=== PATIENT | male | born 2000 | race Caucasian/White ===

== ENCOUNTER 2024-12-28 22:06 | Inpatient (IN) | payer MEDICARE, SELFPAY ==
[2024-12-28 17:28] VITALS: BP 100/72
[2024-12-28 17:38] VITALS: BMI 20.2
[2024-12-28 18:07] LABS: ALT (SGPT) 43 U/L (0-50); AST (SGOT) 34 U/L (17-59); Albumin 4.8 g/dl (3.5-5.0); Alkaline Phosphatase 28 U/L (38-126); Blood Urea Nitrogen 15 mg/dl (9-20); Calcium 9.7 mg/dl (8.4-10.2); Carbon Dioxide 21 mmol/L (22-30); Chloride 94 mmol/L (98-107); Estimated Creatinine Clearance 116 ml/min; Glucose 111 mg/dl (70-99); Potassium 4.5 mmol/L (3.5-5.1); Sodium 122 mmol/L (135-145); Total Protein 7.5 g/dl (6.3-8.2); eGFR > 60.00
[2024-12-28 18:38] LABS: Hematocrit 43.6 % (39.0-52.0); Hemoglobin 16.3 g/dL (13.0-18.0); Mean Corp Hgb Conc. 37.4 g/dL (33.0-37.0); Mean Corpuscular Volume 80.9 fL (80.0-94.0); Platelet Count 522 10^3/uL (130-400); Red Cell Dist. Width 12.2 % (11.5-14.5)
[2024-12-28 18:40] LABS: Absolute Neutrophils -Man Diff 6.9 10^3/uL (1.4-6.5); Smudge Cells 2+; Total Cells Counted 100
[2024-12-28 18:41] LABS: Normal RBC Morphology No; Platelets Checked Yes
[2024-12-28 18:45] LABS: Microcytosis 2+; Poikilocytosis 2+; Schistocytes 1+; Tear Drop Red Blood Cells 1+
[2024-12-28 19:00] VITALS: BP 97/73
[2024-12-28 19:07] LABS: Magnesium 2.0 mg/dl (1.6-2.3)
[2024-12-28] MEDS: SOLU-CORTEF 100 MG IV (19:09)
[2024-12-28 19:14] LABS: Urine Character Clear (Clear)
--- NOTE | 2024-12-28 19:14 | ED.GENMED ---
History of Present Illness
General
Chief Complaint: Abnormal Lab Value
Source: patient
Exam Limitations: none
Time Seen by Provider: 12/28/24 17:31
Nursing documentation reviewed up to this point in time: agreed with
History of Present Illness
History of Present Illness:
Patient with history of congenital adrenal hyperplasia, presents to ED at the recommendation of his packing machine can feeder after outpatient blood work revealed low sodium level. Per mother, patient has had poor appetite recently, with approximately 7
pound weight loss over the past 3 weeks, along with intermittent episode of vomiting. Denies diarrhea. Denies fever or chills. Denies coughing. Denies recent change in medications or diet. Patient takes hydrocortisone and Florinef as
maintenance. Patient was admitted to another hospital 1 month ago secondary to hyponatremia.
Review of Systems
Review of Systems
Allergies reviewed?: Yes
All Other Systems: ROS reviewed and negative except as documented in HPI and ROS
Constitutional: Reports no symptoms; Denies fever
Respiratory: Reports no symptoms; Denies trouble breathing
Cardiac: Reports no symptoms; Denies palpitations
ABD/GI: Reports nausea and vomiting
Musculoskeletal: Reports no symptoms
Skin: Reports no symptoms
Neurological: Reports no symptoms; Denies dizzy, weakness or numbness
Phy Exam
Physical Exam
Physical Exam:
Physical Exam
General: no apparent distress, not acutely ill. afebrile
Head: nc/at. eomi
Neck: supple. no meningeal signs.
Heart: s1/s2 regular rate and rhythm
Lungs: no acute respiratory distress. clear bilaterally
Abdomen: normal bowel sounds. not tender.
Neuro: alert and oriented x 3. no focal neurological deficits
Skin: no rash
Psychiatric: well kept. interactive and cooperative
Extremities: no edema. no calf tenderness.
Course
Orders/Labs/Results
Orders:
Orders
12/28/24 Breakfast
Regular
At Your Request: Full Participation
Fluid Restriction: 1200 mL/day (40 oz)
12/28/24 17:31
Electrocardiogram (*1) Urgent
Reason for Study: Fatigue / Weakness
EKG- Treatment ONCE
12/28/24 17:49
B-Hydroxybutyrate Urgent
CMP [Comprehensive Metabolic Panel] Urgent
Complete Blood Count/With Diff Urgent
Cortisol, Random Urgent
Comment: ADD ON
Magnesium Urgent
Comment: ADD OB
Manual Differential Urgent
Serum Osmolality Urgent
Comment: ADD ON
TSH Urgent
Comment: ADD ON
12/28/24 18:33
Add On- LAB Urgent
Tests Added?: serum osm, magnesium, TSH
12/28/24 18:59
Osmolality, Random Urine Urgent
Date Specimen was Collected: 12/28/24
Time Specimen was Collected: 18:43
Urinalysis Reflex To Culture Urgent
Date Specimen was Collected: 12/28/24
Time Specimen was Collected: 18:43
Urine Microscopic Reflex Cult Urgent
Urine Sodium Urgent
Date Specimen was Collected: 12/28/24
Time Specimen was Collected: 18:43
12/28/24 19:04
Hydrocortisone Sod Succinate [Solu-Cortef] 100 mg IV NOW STA
12/28/24 19:28
Add On- LAB Urgent
Tests Added?: random cortisol
12/28/24 20:55
Admit/Transfer Patient As Directed
Co-Sign Provider:
Level of Care: Inpatient admission
Assign to:: Telemetry
Physician / Group: [place]
Diagnosis: Hyponatremia, Adrenal Insufficiency
Reason for Telemetry: Arrhythmia
Date to Stop Telemetry: 12/31/24
Time to Stop Telemetry: 11:00
Reason for Hospitalization: Hyponatremia, Adrenal Insufficiency
Expected length of stay greater than two midnights?: Yes
ELOS- Estimated Length of Stay in days: 3
I certify the patient meets the requirements for IP care: Yes
PRN Pain Medication Management As Directed
May give lesser potent ordered pain med per pt: Yes
preference::
Protocol:: Medication orders for pain may be administered in a
manner that supports deferring to patient preference
when the pt is:
- Requesting an ordered lesser potent pain medication.
Least to most potent pain medications are defined
as: acetaminophen < NSAID < tramadol < opioids
(morphine, oxycodone, hydromorphone).
- Requesting a lesser dose of the same medication IF
ORDERED.
- Requesting a less intrusive route of administration
if both routes are prescribed by the provider (PO <
IV).
12/28/24 20:56
Code Status As Directed
Resuscitation Status: Full Code
12/28/24 22:08
Acetaminophen [Tylenol] 650 mg PO Q4HPRN PRN
Famotidine [Pepcid] 40 mg PO HS
Prochlorperazine [Compazine] 5 mg IV Q6HPRN PRN
12/28/24 22:08
Activity As Directed
Activity Level: Ambulate
With Assistance
EKG with chest pain [ECG as needed] As Directed
ECG as needed for:: Chest Pain
I/O [Intake/ Output] As Directed
Frequency: Per unit guidelines
Pneumatic Compression Sleeves As Directed
Type: Knee high
Vital Signs As Directed
Frequency: Per unit guidelines
Weight As Directed
Frequency: Daily
DX Deep Vein Thrombosis Video Routine
12/29/24 01:00
Hydrocortisone Sod Succinate [Solu-Cortef] 50 mg IV Q6
12/29/24 06:27
Basic Metabolic Panel IN AM
Complete Blood Count/No Diff IN AM
12/29/24 08:00
Fludrocortisone Acetate [Florinef] 0.1 mg PO SUTUTHSA
12/30/24 08:00
Fludrocortisone Acetate [Florinef] 0.15 mg PO MoWeFr@0800
12/31/24 11:00
DC Protocol for Telemetry ONCE
Abnormal Lab Results
12/28/24 12/28/24
17:49 18:59
MCHC 37.4 H g/dL
(33.0-37.0)
Plt Count 522 H 10^3/uL
(130-400)
Abs Neuts (Manual) 6.9 H 10^3/uL
(1.4-6.5)
Segmented Neutrophils 41 L %
(42-75)
Sodium 122 L mmol/L
(135-145)
Chloride 94 L mmol/L
(98-107)
Carbon Dioxide 21 L mmol/L
(22-30)
Glucose 111 H mg/dl
(70-99)
Serum Osmolality 260 L mOsm/kg
(275-300)
Alkaline Phosphatase 28 L U/L
(38-126)
Urine Ketones 3+ A
(Negative)
Urine Bacteria (Reflex) Few A
(Negative)
Urine Sodium 191 H mmol/L
(30-90)
Urine Albumin (Reflex) 1+ A
(Neg - Trace)
B-Hydroxybutyrate 0.28 H mmol/L
(0.02-0.27)
12/28/24 17:49
12/28/24 17:49
Vital Signs
Initial and Last Documented VS:
Initial Vital Signs
Temp Pulse Resp BP Pulse Ox
98.1 F 102 18 100/72 100
12/28/24 17:28 12/28/24 17:28 12/28/24 17:28 12/28/24 17:28 12/28/24 17:28
Last Documented Vital Signs
Temp Pulse Resp BP Pulse Ox
97.9 F 94 18 103/68 100
12/29/24 11:42 12/29/24 11:42 12/29/24 11:42 12/29/24 11:42 12/29/24 11:42
MDM/Problems Addressed
MDM/Problems Addressed:
Discussed with on-call packing machine can feeder at [facility], covering for primary packing machine can feeder, . Recommends administering hydrocortisone 50 mg every 6 hours along with nephrology consultation for recurrent
hyponatremia.
*Pulse Oximetry
SaO2: 100
Oxygen Mode of Delivery: Room air
Patient hypoxic: no
*Critical Care Note
Total Time (30-74mins, 75-104mins- exclusive of procedures): Not Applicable
ED Attending Note
-
Portions of this chart may have been created with voice recognition software.� Occasional wrong word or��sound alike� substitutions may have occurred due to the inherent limitations of voice recognition software.
Discharge Plan
Departure
Patient Disposition: Admit
Date of Disposition: 12/28/24
Time of Disposition: 19:49
Admit to: Telemetry
Presentation/result/management discussed w/ accepting MD/DO: Hospitalist
Discharge Problem:
Hyponatremia
Interventions
Interventions:
*Risk Screen - Suicide Last Done: 12/28/24 22:30
*General Assessment Last Done: 12/28/24 17:31
*Neglect/Abuse Screening Last Done: 12/28/24 17:31
*ED- Fall Risk Assessment Last Done: 12/28/24 17:32
*ED COVID-19 Vaccine History Last Done: 12/28/24 22:30
*Nursing Disposition Last Done: 12/28/24 22:07
Discharge Date and Time
Discharge Date/Time: 12/28/24 22:16
[2024-12-28 19:33] LABS: Urine Squamous Cell 0-2 /LPF (Few)
[2024-12-28 19:34] LABS: Urine Red Blood Cell 0-2 /HPF (0-2); Urine White Cell 0-2 /HPF (0-5)
[2024-12-28 19:52] LABS: TSH 1.85 uIU/ml (0.47-4.68)
[2024-12-28 20:35] LABS: Cortisol, Random 4.4 ug/dl
--- NOTE | 2024-12-28 20:59 | HPS.HSE ---
Family Physician
-
Family Physician: NOT KNOW UNKNOWN - PT DOES
Chief Complaint
-
Abnormal Labs
History of Present Illness
Patient is a 24y M with PMH significant for congenital adrenal hyperplasia / adrenal insufficiency who presents to ED for evaluation of abnormal labs. Patient had outpatient labs done and was notified by his Evaporator Helper that his Na level was
low at 122. He was advised to present to the ED for admission / IV hydrocortisone. Patient was hospitalized one month ago at [facility] for hyponatremia / adrenal crisis. Mother notes that his presentation at that time was preceded by
agitation / anger / emotional distress. He also has been noted to have early AM emesis of clear fluid that has been fairly consistent over the past few weeks. He has occasional N/V during the day / following meals - but this is less frequent.
Patient tells me that he has some burning discomfort in the epigastric area early in the AM. No diarrhea, bloody stools, etc.
He has had decreased appetite and has lost about 7 pounds in the past 20 days.
No recent emotional stress / anger issues / etc per mother.
Mother notes that he had never had a crisis episode prior to last month.
Medical History
Past Medical History
Past Medical History: Reports Other
Additional Past Medical History:
Congenital Adrenal Hyperplasia
Adrenal Insufficiency
Past Surgical History: Reports Other
Additional Past Surgical History:
Orchiectomy (undescended testicle)
Social History
Tobacco: Non-smoker
Alcohol: None
Drug: None
Family History
Family History: Not pertinent
Allergies / Home Medications
Allergies reflects when Allergies were last updated in [employer].
Home Medications with original date entered in [employer]
Allergy/Medication List:
Allergies
Allergy/AdvReac Type Severity Reaction Status Date / Time
No Known Allergies Allergy Verified 12/28/24 17:33
Home Medications
Lyef Balance 1 cap PO DAILY 12/28/24
fludrocortisone 0.1 mg tablet 0.1 mg PO HS 12/28/24
hydrocortisone 5 mg tablet 10 mg PO HS 12/28/24
hydrocortisone 5 mg tablet 20 mg PO DAILY 12/28/24
magnesium oxide 400 mg PO DAILY 12/28/24
Review of Systems
-
History Source: Patient
A 12 point ROS was completed and negative except as noted: Yes
Constitutional: Reports Weight Loss and Fatigue; Denies Fever or Chills
Respiratory: Denies Cough or Trouble Breathing
Cardiac: Denies Chest Pain or Palpitations
Abdomen/GI: Reports Nausea, Vomiting and Anorexia; Denies Abdominal Pain, Diarrhea, Constipated, Bloody Stools or Black Stools
: Denies Dysuria, Frequency or Flank Pain
Musculoskeletal: Denies Joint Pain or Edema
Neurological: Denies Dizzy or Headache
Psych: Denies Depression or Anxiety
Physical Exam
Vital Signs
Vital Signs
Temp Pulse Resp BP Pulse Ox
98.1 F 95 18 97/73 100
12/28/24 17:28 12/28/24 20:45 12/28/24 20:45 12/28/24 19:00 12/28/24 20:15
Physical Exam
General: Other (24y M in no acute distress. )
HEENT: Moist mucous membranes and PERRLA
Respiratory: Clear; No Wheezes, Rales or Rhonchi
Cardiac: S1/S2 and Regular Rhythm; No Murmur
GI: Soft, Non Tender, Non Distended and Normal Bowel Sounds
Musculoskeletal: No Clubbing, No Cyanosis and No Edema
Neuro: AO x 3
Laboratory Results
-
12/28/24 17:49
12/28/24 17:49
Laboratory Results
Total Bilirubin 0.6 mg/dl (0.2-1.3) 12/28/24 17:49
AST 34 U/L (17-59) 12/28/24 17:49
ALT 43 U/L (0-50) 12/28/24 17:49
Alkaline Phosphatase 28 U/L (38-126) L 12/28/24 17:49
Impression/Plan
-
A/P: Patient is a 24y M with PMH significant for congenital adrenal hyperplasia / adrenal insufficiency who presents to ED for evaluation of hyponatremia.
Congenital Adrenal Hyperplasia
Adrenal Insufficiency
Acute Hyponatremia / Adrenal Crisis
- Admit to monitored bed for further evaluation and treatment.
- Hydrocortisone 100mg given in the ED.
- Continue with hydrocortisone 50mg IV q 6 until Na levels are improved.
- Fluid restriction.
- Nephrology evaluation for additional recommendations.
- Continue usual dose of Florinef.
- Follow BP / pulse / etc.
- Monitor for any new / worsening symptoms.
N/V
- Patient with persistent AM nausea and emesis.
- ? gastritis / reflux disease with mostly AM symptoms, described burning sensation and chronic steroid use.
- Trial of H2 blockade at HS.
- Consider GI evaluation for additional evaluation / recommendations.
DVT Prophylaxis: SCDs
Code Status: Full
[2024-12-28 21:03] VITALS: BP 92/58
[2024-12-28 22:23] VITALS: BP 108/67; BMI 19.3
[2024-12-28] MEDS: PEPCID 40 MG PO (23:14)
[2024-12-29] VITALS (7 sets, daily range): BP systolic 100–115; BP diastolic 63–74; BMI 19.1
[2024-12-29] MEDS: SOLU-CORTEF 50 MG IV ×5 (01:13→23:45)
--- NOTE | 2024-12-29 03:55 | PTCARENOTE ---
received pt from ED at 2230. pt ambulated from stretcher to bed. pts mother at bedside. pt A&O x 3. pt offers no current complaints and appears comfortable in bed. plan of care ongoing.
--- NOTE | 2024-12-29 07:05 | PTCARENOTE ---
pt HR tachy throughout the night 80s-120s. Vital signs otherwise stable, pt asymptomatic. ambulated pt to bathroom at 0615 and HR went up to 150-160s. once pt brought back to bed HR back down to low 100s. Pt denies chest pain or palpitations. CLINICAL INFORMATION SYSTEMS DIRECTOR
made aware, no new orders at this time. plan on care ongoing.
--- NOTE | 2024-12-29 07:26 | W.PN.HOSP.TC ---
Addendum entered and electronically signed by Hilton Merida MD 12/29/24 21:26:
Attending Addendum-
I saw and evaluated the patient. I reviewed the resident�s note and agree with findings and plan as documented in the resident�s note. Sub: patient seen with mother present. states he feels much better. has no complaints Mother is providing majority
of history. Denies pain CP palps urinary sxs. Full 12 point ROS reviewed and negative except as documented Exam: Vitals reviewed in chart GEN-NAD heart tachycardic lungs clear abd soft LE no edema Neuro AAO x 3
Plan:
#Congenital Adrenal Hyperplasia
#Adrenal Insufficiency/Adrenal Crisis
- Continue with hydrocortisone 50mg IV q 6
- DC fluid restriction
- endo consult
- Continue Florinef
- r/o infection
# Severe Hyponatremia
- hypovolemic
- due to adrenal insufficiency
- cont hydrocortisone/florinef
- avoid increase > 8-10meq n 24 hours
- DC fluid restriction, start IVF
- c/s nephro-placed overnight
- monitor closely
# Hyperkalemia
- from adrenal insufficiency
- cont hydrocortisone/florinef
- repeat BMP, check EKG-no peaked t waves
# N/V
- start H2 blockade at HS
# Metabolic Acidosis
- likely from dehydration/ketosis
- start IVF
DVT Prophylaxis: SCDs
Code Status: Full
Time spent coordinating care, review of plan of care with resident, personally reviewed records in EMR, med rec, consults, notes, labs, radiology, d/w nursing, and mother � 53 mins
Original Note:
Today's Communication/Plan
-
Continue to monitor BMP
Continue IV steroids, Famotidine, prochlorperazine as needed for nausea
Start IV fluids
No fluid restriction
Assessment / Plan
Assessment / Plan
Assessment:
This is a 24 y/o male with pmhx of congenital adrenal hyperplasia/adrenal insufficiency who presented to the ED by the request of his tattoo artist. He was notified by his tattoo artist via phone that his recent outpatient labs showed a sodium
of 122.
Plan:
Congenital Adrenal Hyperplasia
Adrenal Insufficiency
Acute Hyponatremia/Acute Hyperkalemia/Adrenal crisis
-Sodium on admission 122, 124 today. On repeat BMP, sodium was 123.
-Potassium on admission 4.5, 6.0 today. On repeat BMP, potassium was 5.3
-S/p 100mg hydrocortisone in the ED
-Continue hydrocortisone 50mg IV Q6hr until sodium level improves
-Continue home dosing of fludrocortisone (0.1mg Thursday/Thursday//Thursday; 0.15mg Thursday/Thursday/Thursday)
-Continue to monitor BMP. In light of increase in potassium, ordered repeat BMP as well as magnesium, phosphorous and EKG this AM. EKG showed no acute changes compared to EKG prior to onset of palpitations.
-If Potassium increases again, will order Insulin 10 units + Dextrose and repeat BMP serially following treatment and possibly calcium gluconate if abnormalities are noted on telemetry
-Continue to follow vital signs, continue on telemetry
-Removed fluid restriction from diet
-Started Normal Saline IVF
Nausea/Vomiting
-Patient with persistent teaching dietitian nausea and vomiting
-DD includes GERD, pill esophagitis
-Continue famotidine 40mg HS
-Continue prochlorperazine 5mg IV [id number] for nausea/vomiting
Anticipated Discharge: 24 - 48 hours
Subjective/Interval History
-
Date of Service: December 29, 2024
Patient was sitting in bed when I arrived. He states that he has been admitted to [facility] twice recently prior to this current admission. He has no current complaints, but states last night his heart felt like it was racing. This happened
while he was sitting in bed, and resolved on its own. It has not occurred before or since. He states that his mother will be coming to the hospital around 9:00AM, and will be able to answer questions about his medical history then.
By nursing staff report, last night patient had an episode of heart palpitations accompanied by heart rate in the 160s. This morning, while going to the bathroom, his heart rate was 130.
Objective Data
-
Labs:
Laboratory Results
12/29/24
06:27
WBC Pending
Hgb Pending
Hct Pending
Plt Count Pending
Sodium Pending
Potassium Pending
Chloride Pending
Carbon Dioxide Pending
BUN Pending
Creatinine Pending
Glucose Pending
Calcium Pending
Vital Signs:
Vital Signs
Temp Pulse Resp BP Pulse Ox
97.6 F 93 20 100/68 100
12/29/24 03:57 12/29/24 03:57 12/29/24 03:57 12/29/24 03:57 12/29/24 03:57
I&O
12/28/24 12/29/24 12/30/24
06:59 06:59 06:59
Intake Total 480 / 480
Balance 480 / 480
Review of Systems
-
History Source: Patient
Respiratory: Denies Trouble Breathing
Cardiac: Reports Palpitations (See HPI, none currently); Denies Chest Pain
Abdomen/GI: Denies Abdominal Pain or Nausea
Musculoskeletal: Denies Joint Pain
Neuro: Denies Dizzy or Headache
Physical Exam
-
General: No Apparent Distress and Comfortable
Respiratory: Clear to Auscultation
Cardiac: Regular Rhythm, S1/S2 and Tachycardic
Skin: Warm and Dry
Neuro: Awake and Alert
Psych: Calm
[2024-12-29 07:35] LABS: Hematocrit 45.6 % (39.0-52.0); Hemoglobin 16.8 g/dL (13.0-18.0); Mean Corp Hgb Conc. 36.8 g/dL (33.0-37.0); Mean Corpuscular Volume 83.1 fL (80.0-94.0); Platelet Count 610 10^3/uL (130-400); Red Cell Dist. Width 12.0 % (11.5-14.5)
[2024-12-29 08:00] LABS: Blood Urea Nitrogen 19 mg/dl (9-20); Calcium 9.8 mg/dl (8.4-10.2); Carbon Dioxide 16 mmol/L (22-30); Chloride 97 mmol/L (98-107); Estimated Creatinine Clearance 110 ml/min; Glucose 130 mg/dl (70-99); Potassium 6.0 mmol/L (3.5-5.1); Sodium 124 mmol/L (135-145); eGFR > 60.00
[2024-12-29] MEDS: FLORINEF 0.1 MG PO (08:15)
[2024-12-29 09:31] LABS: Blood Urea Nitrogen 19 mg/dl (9-20); Calcium 10.0 mg/dl (8.4-10.2); Carbon Dioxide 17 mmol/L (22-30); Chloride 96 mmol/L (98-107); Estimated Creatinine Clearance 110 ml/min; Glucose 248 mg/dl (70-99); Potassium 5.3 mmol/L (3.5-5.1); Sodium 123 mmol/L (135-145); eGFR > 60.00
[2024-12-29 09:55] LABS: Magnesium 2.1 mg/dl (1.6-2.3)
[2024-12-29] MEDS: NSS 1000 IV (11:45)
--- NOTE | 2024-12-29 12:07 | W.CON.NEPH ---
Consultation
-
Date/Time Consultation Requested: December 28, 2024 at 2000
Date/Time Consultation Performed: December 29, 2024 9 AM
Requesting Provider: Mike Mathew
Performing Provider: Dr. Culp
Reason for Consultation: Hyponatremia
Medical History
-
Chief Complaint: Hyponatremia
History of Present Illness:
24y M with PMH significant for congenital adrenal hyperplasia / adrenal insufficiency who presents to ED for evaluation of abnormal labs. Patient had outpatient labs done and was notified by his Gospel Singer that his Na level was low at 122.
He was advised to present to the ED for admission / IV hydrocortisone. Patient was hospitalized one month ago at [facility] for hyponatremia / adrenal crisis. Mother notes that his presentation at that time was preceded by agitation / anger /
emotional distress.
Mild vomiting yesterday
Mother notes that he had never had a crisis episode prior to last month.
Renal consult for hyponatremia and hyperkalemia
Past Medical History
Congenital adrenal hyperplasia / adrenal insufficiency
Social History
Tobacco: Non-Smoker
Alcohol: None
Allergies / Home Medications
Allergy/AdvReac Type Severity Reaction Status Date / Time
No Known Allergies Allergy Verified 12/28/24 17:33
�Medication �Instructions �Recorded �Confirmed �Type
Lyef Balance 1 cap PO DAILY Supplement 12/28/24 12/28/24 History
fludrocortisone 0.1 mg tablet 0.1 mg PO HS Hormonal Agent 12/28/24 12/28/24 History
hydrocortisone 5 mg tablet 10 mg PO HS Hormonal Agent 12/28/24 12/28/24 History
hydrocortisone 5 mg tablet 20 mg PO DAILY Hormonal Agent 12/28/24 12/28/24 History
magnesium oxide 400 mg PO DAILY Supplement 12/28/24 12/28/24 History
Review of Systems
-
No chest pain or shortness of breath normal appetite no urinary incontinence
All other systems: Negative unless noted
Physical Exam
Vital Signs
Vital Signs
Temp Pulse Resp BP Pulse Ox
97.9 F 94 18 103/68 100
12/29/24 11:42 12/29/24 11:42 12/29/24 11:42 12/29/24 11:42 12/29/24 11:42
Lab Results
WBC 6.7 10^3/uL (4.8-10.8) 12/29/24 06:27
RBC 5.49 10^6/uL (4.70-6.10) 12/29/24 06:27
Hgb 16.8 g/dL (13.0-18.0) 12/29/24 06:27
Hct 45.6 % (39.0-52.0) 12/29/24 06:27
Plt Count 610 10^3/uL (130-400) H 12/29/24 06:27
Sodium 123 mmol/L (135-145) L 12/29/24 08:40
Potassium 5.3 mmol/L (3.5-5.1) H 12/29/24 08:40
Chloride 96 mmol/L (98-107) L 12/29/24 08:40
Carbon Dioxide 17 mmol/L (22-30) L 12/29/24 08:40
BUN 19 mg/dl (9-20) 12/29/24 08:40
Creatinine 0.8 mg/dL (0.7-1.3) 12/29/24 08:40
eGFR > 60.00 12/29/24 08:40
Glucose 248 mg/dl (70-99) H 12/29/24 08:40
Calcium 10.0 mg/dl (8.4-10.2) 12/29/24 08:40
Phosphorus 5.3 mg/dl (2.5-4.5) H 12/29/24 08:40
Albumin 4.8 g/dl (3.5-5.0) 12/28/24 17:49
Physical Exam
General no acute distress
HEENT no cephalic atraumatic extraocular muscle intact no scleral icterus no JVD neck supple
lungs clear to auscultation bilateral
heart regular S1-S2 positive
abdomen soft nontender positive bowel sounds
extremities no edema pulses present bilateral
Neurologically nonfocal alert and oriented x 3
Skin no lesions no abrasions no petechiae
Psych normal affect no bizarre behavior
Data Reviewed
-
Labs: Labs Reviewed by me, Discussed with Patient and Discussed with Family
Assessment/Plan
-
24y M with PMH significant for congenital adrenal hyperplasia / adrenal insufficiency who presents to ED for evaluation of abnormal labs. Patient had outpatient labs done and was notified by his Gospel Singer that his Na level was low at 122.
He was advised to present to the ED for admission / IV hydrocortisone. Patient was hospitalized one month ago at [facility] for hyponatremia / adrenal crisis. Mother notes that his presentation at that time was preceded by agitation / anger /
emotional distress. He also has been noted to have early AM emesis of clear fluid that has been fairly consistent over the past few weeks. He has occasional N/V during the day / following meals - but this is less frequent.
Patient tells me that he has some burning discomfort in the epigastric area early in the AM. No diarrhea, bloody stools, etc.
He has had decreased appetite and has lost about 7 pounds in the past 20 days.
No recent emotional stress / anger issues / etc per mother.
Mother notes that he had never had a crisis episode prior to last month.
Impression
Hyponatremia 124
Hyperkalemia
Adrenal insufficiency/congenital adrenal hyperplasia
Cognitive disability
Plan.
IV hydrocortisone.
Continue Florinef.
Increase Florinef to 0.2 mg daily. Outpatient currently taking 0.1 mg 4 times a week and 0.15 mL Thursday.
Will give hypertonic saline for 6-hour
Follows with endocrinology [facility] has not done so in the last 2 to 3 years
[2024-12-29] MEDS: SODIUM CHLORIDE 3% 250 IV (12:52)
--- NOTE | 2024-12-29 13:00 | CM ---
Chart reviewed. Met with pt and mother. IA completed. lives in the basement of a 3 story home which he shares with mother. Pt has access to all levels of the home. BR is on the 1st floor. Pt in independent in ADLs. No hx of home O2, HH. DME or SNF.
No insecurities identified. Mother states uses his development and housing director as his PCP: Dr. Mckenzie. Confirmed RX, insurance and drug coverage.
Plan: Home with mother, no needs
[2024-12-29] MEDS: PEPCID 40 MG PO (20:17)
[2024-12-30 03:23] VITALS: BP 104/69
[2024-12-30] MEDS: SOLU-CORTEF 50 MG IV ×2 (05:35→12:04)
[2024-12-30 06:00] VITALS: BMI 19.8
[2024-12-30 07:00] VITALS: BP 117/72
--- NOTE | 2024-12-30 07:15 | W.PN.HOSP.TC ---
Addendum entered and electronically signed by Hilton Merida MD 12/30/24 22:01:
Attending Addendum-
I saw and evaluated the patient. I reviewed the resident�s note and agree with findings and plan as documented in the resident�s note. Sub: called by nursing re mother wanting to be DC'd stat or leave AMA. d/w mother at great length re developing a
solid plan prior to DC as patient is still on IV steroids. patient seen with mother present. states he feels much better and wants to go home. Mother is providing all of history. Denies pain CP palps urinary sxs. Full 12 point ROS reviewed and
negative except as documented Exam: Vitals reviewed in chart GEN-NAD heart RRR lungs clear abd soft LE no edema Neuro AAO x 3 , developmental delay
Plan:
#Congenital Adrenal Hyperplasia
#Adrenal Insufficiency/Adrenal Crisis
- transition to stress dose steroids PO on DC
- DC fluid restriction
- d/w endo at [facility]
- Continue increased Florinef
- no clear cause for patients sxs or stressor noted
- to avoid ama will DC with close follow up plan and agreement with mother to follow plan
# Severe Hyponatremia
- hypovolemic
-imporved after 3% saline
- cont increased florinef- dc home with close follow up
# Hyperkalemia
- from adrenal insufficiency
- cont hydrocortisone/florinef
- repeat BMP, check EKG-no peaked t waves
# N/V
- start H2 blockade at HS
# Metabolic Acidosis
- likely from dehydration/ketosis
DVT Prophylaxis: SCDs
Code Status: Full
Time spent coordinating care, DC planning, review of DC plan of care with resident, transition of care, review of records, med rec/scripts sent electronically, consults, notes, d/w consultants, nursing, family, [facility] and CM� 33 mins
>50% of this time was devoted to counseling and coordination of care
Original Note:
Today's Communication/Plan
-
Continue IV steroids
Plan to switch to oral medications later today
Assessment / Plan
Assessment / Plan
Assessment:
This is a 24 y/o male with pmhx of congenital adrenal hyperplasia/adrenal insufficiency who presented to the ED by the request of his director of patient care. He was notified by his director of patient care via phone that his recent outpatient labs showed a sodium
of 122.
Plan:
Congenital Adrenal Hyperplasia
Adrenal Insufficiency
Acute Hyponatremia/Acute Hyperkalemia/Adrenal crisis
-Sodium on admission 122, 130
-Potassium on admission 4.5, 5.4
-S/p 100mg hydrocortisone in the ED
-S/p bolus of 250mL 3% saline yesterday
-Continue hydrocortisone 50mg IV Q6hr until sodium level improves. Will plan to discuss his case with endocrinology to switch his hydrocortisone to PO later today
-Continue fludrocortisone. Nephrology has increased his dosage to 2.0 daily (Home regime: 0.1mg Thursday/Thursday//Thursday; 0.15mg Thursday/Thursday/Thursday)
-Continue to monitor BMP
-If Potassium increases, will order Insulin 10 units + Dextrose and repeat BMP serially following treatment and possibly calcium gluconate if abnormalities are noted on telemetry
-Continue to follow vital signs, continue on telemetry
-Will monitor
Nausea/Vomiting, Resolved
Severe Protein Calorie Malnutrition of Chronic Illness
-Patient with persistent box maker nausea and vomiting, contributing to low BMI and recent weight loss.
-DD includes GERD, pill esophagitis
-Continue famotidine 40mg HS
-Continue prochlorperazine 5mg IV [id number] for nausea/vomiting
-Encouraged eating three meals each day now that nausea/vomiting has resolved
Anticipated Discharge: Within 24 hours
Subjective/Interval History
-
Date of Service: December 30, 2024
Patient was sitting comfortably in his room when I arrived. His mother was not present at the time. He denied any heart palpitations, dizziness, abdominal pain or shortness of breath. He states that he feels fine.
Objective Data
-
Labs:
Laboratory Results
12/30/24
06:00
WBC Pending
Hgb Pending
Hct Pending
Plt Count Pending
Sodium Pending
Potassium Pending
Chloride Pending
Carbon Dioxide Pending
BUN Pending
Creatinine Pending
Glucose Pending
Calcium Pending
Vital Signs:
Vital Signs
Temp Pulse Resp BP Pulse Ox
97.8 F 83 18 104/69 98
12/30/24 03:23 12/30/24 03:23 12/30/24 03:23 12/30/24 03:23 12/30/24 03:23
I&O
12/29/24 12/30/24 12/31/24
06:59 06:59 06:59
Intake Total 2159 / 2159
Balance 2159 / 2159
Review of Systems
-
History Source: Patient
Constitutional: Denies Fever, Fatigue or Chills
Respiratory: Denies Cough or Trouble Breathing
Cardiac: Denies Chest Pain, Palpitations or Syncope
Abdomen/GI: Denies Abdominal Pain, Nausea, Vomiting, Diarrhea or Constipated
Neuro: Denies Dizzy or Weakness
Physical Exam
-
General: No Apparent Distress and Comfortable
Respiratory: Clear to Auscultation
Cardiac: Regular Rhythm and S1/S2
GI: Soft, Nontender and Normal Bowel Sounds
Musculoskeletal: No Edema
Skin: Warm and Dry
Neuro: Awake, Alert and Oriented
Psych: Calm
[2024-12-30 08:25] LABS: Hematocrit 40.8 % (39.0-52.0); Hemoglobin 14.6 g/dL (13.0-18.0); Mean Corp Hgb Conc. 35.8 g/dL (33.0-37.0); Mean Corpuscular Volume 84.8 fL (80.0-94.0); Platelet Count 487 10^3/uL (130-400); Red Cell Dist. Width 12.3 % (11.5-14.5)
[2024-12-30 08:48] LABS: Blood Urea Nitrogen 16 mg/dl (9-20); Calcium 9.5 mg/dl (8.4-10.2); Carbon Dioxide 21 mmol/L (22-30); Chloride 103 mmol/L (98-107); Estimated Creatinine Clearance > 125 ml/min; Glucose 123 mg/dl (70-99); Potassium 5.4 mmol/L (3.5-5.1); Sodium 130 mmol/L (135-145); eGFR > 60.00
[2024-12-30 09:12] LABS: Glycohemoglobin (HgbA1c) 5.7 % (4.0-5.6)
[2024-12-30] MEDS: FLORINEF 0.2 MG PO (09:33)
[2024-12-30 11:13] VITALS: BP 105/64
--- NOTE | 2024-12-30 11:15 | W.PN.NEPH.PH ---
Today's Communication / Plan
-
Lokelma
Stable for discharge from nephrology stand
Assessment/Plan
-
24y M with PMH significant for congenital adrenal hyperplasia / adrenal insufficiency who presents to ED for evaluation of abnormal labs. Patient had outpatient labs done and was notified by his Shuttle Driver that his Na level was low at 122.
He was advised to present to the ED for admission / IV hydrocortisone. Patient was hospitalized one month ago at [facility] for hyponatremia / adrenal crisis. Mother notes that his presentation at that time was preceded by agitation / anger /
emotional distress. He also has been noted to have early AM emesis of clear fluid that has been fairly consistent over the past few weeks. He has occasional N/V during the day / following meals - but this is less frequent.
Patient tells me that he has some burning discomfort in the epigastric area early in the AM. No diarrhea, bloody stools, etc.
He has had decreased appetite and has lost about 7 pounds in the past 20 days.
No recent emotional stress / anger issues / etc per mother.
Mother notes that he had never had a crisis episode prior to last month.
Impression
Hyponatremia 124
Hyperkalemia
Adrenal insufficiency/congenital adrenal hyperplasia
Cognitive disability
Plan.
IV hydrocortisone.
Serum sodium up to 130 following hypertonic saline infusion
Continue Florinef at escalated dose ( Outpatient currently taking 0.1 mg 4 times a week and 0.15 mL Thursday.)
Maintain fluid restriction
Discussed with mother in detail
She would like patient released so that she can follow-up with [facility] endocrinology
He is stable from my standpoint for discharge
Will provide 1 dose of Lokelma for hyperkalemia
-
-
Date of Service: December 30, 2024
CC / HPI / ROS
-
Chief Complaint:
Hyponatremia
History of Present Illness:
Serum sodium up to 130 following hypertonic saline infusion
Hemodynamically more stable
Potassium at 5.4
Review of Systems:
no chest paih or sob
aggravated
Labs
-
Labs:
WBC 9.0 10^3/uL (4.8-10.8) 12/30/24 07:40
RBC 4.81 10^6/uL (4.70-6.10) 12/30/24 07:40
Hgb 14.6 g/dL (13.0-18.0) 12/30/24 07:40
Hct 40.8 % (39.0-52.0) 12/30/24 07:40
Plt Count 487 10^3/uL (130-400) H D 12/30/24 07:40
Sodium 130 mmol/L (135-145) L 12/30/24 07:40
Potassium 5.4 mmol/L (3.5-5.1) H 12/30/24 07:40
Chloride 103 mmol/L (98-107) 12/30/24 07:40
Carbon Dioxide 21 mmol/L (22-30) L 12/30/24 07:40
BUN 16 mg/dl (9-20) 12/30/24 07:40
Creatinine 0.6 mg/dL (0.7-1.3) L 12/30/24 07:40
eGFR > 60.00 12/30/24 07:40
Glucose 123 mg/dl (70-99) H 12/30/24 07:40
Calcium 9.5 mg/dl (8.4-10.2) 12/30/24 07:40
Phosphorus 5.3 mg/dl (2.5-4.5) H 12/29/24 08:40
Albumin 4.8 g/dl (3.5-5.0) 12/28/24 17:49
Physical Exam
-
Vital Signs:
Vital Signs
Temp Pulse Resp BP Pulse Ox
97 F 93 12 105/64 98
12/30/24 11:13 12/30/24 11:13 12/30/24 11:13 12/30/24 11:13 12/30/24 11:13
Extremity Edema:: None: Bilateral:
[place]oa Catheter: No
[2024-12-30] MEDS: LOKELMA 10 GRAM PO (12:02)
[2024-12-30] MEDS: FLUSH (NSS) 2 FLUSH IV (12:04)
--- NOTE | 2024-12-30 12:30 | PTCARENOTE ---
mother at bedside requesting to speak with nurse. when this nurse entered room mother asking about lab level results. informed her of sodium level of 130. she said that is good fro him to go home. wanted the doctor to discharge him 'now'. mother
expressed that she didn't want to wait all day for her son to be discharged and that if doctor could not come now she was taking him home. encourage mother to wait for doctor. Dr Merida and Dr Chirinos made aware . they came to see patient and
speak with mother. plan is for discharge today.
--- NOTE | 2024-12-30 14:29 | CM ---
Pt is leaving with his mother without waiting for discharge order or a script from his sociology research assistant. States she is tired of waiting. Dr. Merida made aware via [place] Text.
Plan: Home no needs.
--- NOTE | 2024-12-30 14:48 | PN.CDI ---
CDI
- -
CDI:
Physician Documentation Request
Admit Date: 12/28/24 22:06
Dear Doctor Candis,
Patient admitted with adrenal crisis.
12/29 Nutrition note, 'Pt meets criteria for severe protein calorie malnutrition of chronic illness with >5% wt loss x 1 month, prolonged poor intake prior to hospital admit.
Please provide in your note the diagnosis associated with the above findings:
Severe protein calorie malnutrition of chronic illness
Other (please specify)
[place] Criteria ([facility] Hospitalist 2017)
2 or more criteria must be present for either
non severe or severe malnutrition
Note that the criteria differs related to the
presence of an acute or chronic illness
Chronic Illness
Energy Intake Non Severe: <75% for >1 month
Severe: <75% for >1 month
Weight Loss Non Severe: 5% over 1 month
7.5% over 3 months
10% over 6 months
20% over 1 year
Severe: >5% over 1 month
>7.5% over 3 months
>10% over 6 months
>20% over 1 year
Body Fat Non Severe: Mild Loss
Severe: Severe Loss
Muscle Mass Non Severe: Mild Loss
Severe: Severe Loss
Fluid Accumulation Non Severe: Mild Accumulation
Severe: Moderate to severe
accumulation
Reduced Corporate Licensed Broker Strength Non Severe: N/A
Severe: Measurably reduced
Use of terms such as suspected, likely, concern for, or probable (associated with a specific diagnosis that is being evaluated, monitored, or treated as if it exists) are acceptable and can be coded in the inpatient setting, when documented at the
time of discharge.
Thank you,
Betsy ZABALA,RN,CCDS
CDI Specialist
Available via tiger text
Please use your independent medical judgment in providing your response.
--- NOTE | 2024-12-30 14:54 | W.PN.UPDATE ---
Update Note
Progress Note Update
Following my initial encounter with Franco this AM, I received a TigerText around 12:20 stating that his mother had arrived and wanted to take her son home and would like to leave AMA. I returned to the room with Dr. Merida to discuss his case with
her. At that time, she had called [facility], Dr. Lugo, and was waiting for a call back. She reported she takes very good care of her son at home and does not understand why this has happened to him, and that she wanted to get him out of
the hospital as quickly as possible so they can restart his home medications and follow up with [facility]. She also states she spoke to a someone this morning who told her that Franco was okay to be leave the hospital, neither Dr. Merida
or I. To help coordinate this transition of care, I personally called [facility] and left a message to discuss his case with his established environmental services director.
Around 2 hours later the patient was dressed and ready to leave despite the fact we had not yet heard from [facility], and his mother was once more requesting to leave immediately. We instructed her that Franco needed a very close follow up
with his environmental services director, should have a BMP completed in 1 week and sent refills to his pharmacy for an increased dose of hydrocortisone to take tomorrow (Before returning to his original dose), and an increased dose of fludrocortisone at 0.2mg
daily to remain on until follow up with his Hydrochloric Area Supervisor. He was then discharged from this hospital.
Almost immediately after Franco and his mother had left, I received a call back from Dr. Lugo. She has known Franco since 10/2024 and reports he recently had a hospitalization in the end of November where he was admitted to the ICU for adrenal
crisis, and another hospitalization before that also for adrenal crisis. She was concerned as there was no clear inciting factor for these frequent hospitalizations, as he has been free from injury or illness. We had been unaware of the second
hospitalization, and we had also been unaware of the need for ICU-level care at his most recent admission. At this time there is no clear reason why he has had such frequent adrenal crises recently, as his home fludrocortisone and hydrocortisone
should be appropriate by her perspective.
Dr. Lugo plans on contacting Franco's mother to schedule an appointment as quickly as her office is able. She also plans to have them complete a BMP on Thursday to monitor his sodium and potassium levels.
--- NOTE | 2024-12-30 14:57 | CM ---
Pt discharged home with no needs. Transportation provided by parent in private car.
--- NOTE | 2024-12-30 15:02 | PTCARENOTE ---
mother and son at nurses station , mother insisting on leaving. patient still with IV access in place. informed patient and mother that IV needle needed to be removed prior to him leaving and instructed them to return to patients room. Dr Merida
and Dr Chirinos made aware. discharge orders and instructions received and reviewed with patient and mother. mother voiced understanding. patient ambulated with mother out of hospital.
--- NOTE | 2024-12-30 16:58 | W.DCSUMMARY ---
Addendum entered and electronically signed by Hilton Merida MD 12/30/24 22:04:
Read, reviewed, and agree. See same day progress note for additional details. Patient dc'd with mother and strict follow up plan with steven pratt. patients mother expressed understanding. patient to continue hydrocortisone 60/30 x 1 day then back to
original dosing 20/10 and increased Florinef. F/U BMP in one week. Strict follow up plan and return back to ED instructions given.
Jd Merida MD
Original Note:
Documented by User: Isa Chirinos DO, Resident 12/30/24 17:17
Discharge Summary
Discharge Data
Date of Admission: 12/28/24
Date of Discharge: 12/30/24
-
Pending Results: No
Hospital Course
This is a 24 y/o male with pmhx of congenital adrenal hyperplasia/adrenal insufficiency who presented to the ED by the request of his mercury washer. He was notified by his mercury washer via phone that his recent outpatient labs showed a sodium
of 122. Of note, his mother reported he was recently hospitalized in November prior at [facility] for hyponatremia/adrenal crisis.
Prior to this notification, his mother notes that he had academic interventionist vomiting of clear liquid for the last few weeks accompanied by burning discomfort in the epigastric region with occasional nausea and vomiting during the day mainly following
meals.
In the ED, his sodium was noted to be low at 122 and his chloride was low at 94. His anion gap was 7. His B-hydroxybutyrate was high at 0.28, and his urine sodium was high at 191. His serum osmolality was low at 260. His urine osmolality was normal
at 793. His random cortisol was normal at 4.4. He was given 100mg of hydrocortisone in the ED and was placed on a fluid restriction. He was given Prochlorperazine, famotidine for his morning nausea. Nephrology was consulted, and he was admitted to
the hospital for further management.
On 12/29/2024 his sodium had only increased to 124, and his potassium had increased to 6.0. He was asymptomatic, and EKG showed no change since the day prior. Repeat BMP revealed a sodium of 123, and a potassium of 5.3. His IV steroids were continued
and he was given 250mL of 3% normal saline.
On 12/30/2024 his sodium was 130, and his potassium 5.4. He was given a one time dose of Lokelma. His fludrocortisone was increased to 0.2mg daily. He was discharged to home with a one time dose of hydrocortisone 60mg in the AM on 12/31 and 30mg in
the PM on 12/31, and instructions to return to his regular dosage on 01/01/2025. His increased hospital dose of fludrocortisone 0.2mg daily was continued. He was instructed to follow up with his mercury washer as quickly as possible, and to complete
a BMP.
For events following his discharge from the hospital, please see the most recent Update Note on 12/30/2024.
Discharge Plan
-
Patient Disposition: Home (Routine Discharge)
Discharge Diagnosis/Procedures: Adrenal Crisis
Condition: Fair
Diet: No restrictions
Activity: No restrictions
Driving Restrictions: As prior to admission
Bathing Restrictions: None
Blood Work: BMP in 1 week
Referrals:
Zulma Lugo MD [Non-Admitting Privileges]
Referral Note: Chief Executive Or Managing Director
UNKNOWN - PT DOES,NOT KNOW [Family Provider]
Additional Discharge Medication Instructions: You were hospitalized for adrenal crisis. During this hospitalization, you were given IV steroids. Please follow up closely with your mercury washer to adjust your steroid medications to appropriate
levels.
On 12/31/2024, please take the increased dose of hydrocortisone we have given you (60mg in the morning, 30 mg in the evening). You may resume your normal dose on 01/01/2025.
We increased your dose of fludrocortisone to 0.2mg once daily.
Prescriptions:
New
fludrocortisone 0.1 mg Tablet
0.2 mg PO DAILY Qty: 30 0RF
Continued
magnesium oxide 400 mg magnesium Tablet
400 mg PO DAILY
Changed
hydrocortisone 5 mg Tablet
60 mg PO DAILY Qty: 1 0RF
hydrocortisone 5 mg Tablet
30 mg PO HS Qty: 1 0RF
Discontinued
fludrocortisone 0.1 mg Tablet
0.1 mg PO HS
Lyef Balance
1 cap PO DAILY
Discharge Orders:
Discharge Patient (As Directed); Ordered 12/30/24
Ordered By: Isa Chirinos
Discharge Date and Time
Discharge Date/Time: 12/30/24 15:02
Print Language: THAI

Documented by User: Hilton Merida MD 12/30/24 21:54
Discharge Summary
Discharge Data
Date of Admission: 12/28/24
Date of Discharge: 12/30/24
Discharge Plan
-
Patient Disposition: Home (Routine Discharge)
Discharge Diagnosis/Procedures: Adrenal Crisis
Condition: Fair
Diet: No restrictions
Activity: No restrictions
Driving Restrictions: As prior to admission
Bathing Restrictions: None
Blood Work: BMP in 1 week
Referrals:
Zulma Lugo MD [Non-Admitting Privileges]
Referral Note: Chief Executive Or Managing Director
UNKNOWN - PT DOES,NOT KNOW [Family Provider]
Additional Discharge Medication Instructions: You were hospitalized for adrenal crisis. During this hospitalization, you were given IV steroids. Please follow up closely with your mercury washer to adjust your steroid medications to appropriate
levels.
On 12/31/2024, please take the increased dose of hydrocortisone we have given you (60mg in the morning, 30 mg in the evening). You may resume your normal dose on 01/01/2025.
We increased your dose of fludrocortisone to 0.2mg once daily.
Prescriptions:
New
fludrocortisone 0.1 mg Tablet
0.2 mg PO DAILY Qty: 30 0RF
Continued
magnesium oxide 400 mg magnesium Tablet
400 mg PO DAILY
Changed
hydrocortisone 5 mg Tablet
60 mg PO DAILY Qty: 1 0RF
hydrocortisone 5 mg Tablet
30 mg PO HS Qty: 1 0RF
Discontinued
fludrocortisone 0.1 mg Tablet
0.1 mg PO HS
Lyef Balance
1 cap PO DAILY
Discharge Orders:
Discharge Patient (As Directed); Ordered 12/30/24
Ordered By: Isa Chirinos
Discharge Date and Time
Discharge Date/Time: 12/30/24 15:02
Print Language: THAI
== END 2024-12-30 15:02 | disposition home or self-care (01) | DRG 643 ==
LOC: 4 EAST ACU 22:06
PROVIDERS: ADMITTING PHYSICIAN Hospitalist; ATTENDING PHYSICIAN Family Medicine; CONSULT PHYSICIAN Internal Medicine Nephrology; EMERGENCY PHYSICIAN Emergency Medicine
DX: E27.2 Addisonian crisis (principal); E43 Unspecified severe protein-calorie malnutrition; E87.1 Hypo-osmolality and hyponatremia; E87.20 Acidosis, unspecified; Z68.1 Body mass index [BMI] 19.9 or less, adult; R62.50 Unspecified lack of expected normal physiological development in childhood; E86.0 Dehydration; K21.9 Gastro-esophageal reflux disease without esophagitis; E87.5 Hyperkalemia; K29.70 Gastritis, unspecified, without bleeding; Q53.10 Unspecified undescended testicle, unilateral; Z79.52 Long term (current) use of systemic steroids
CPT/HCPCS: 80048; 80053; 81003; 81015; 82010; 82533; 83036; 83735; 83930; 83935; 84100; 84300; 84443; 85025; 85027; 93005; 96361; 99285